=== PATIENT | male | born 1990 | race Hispanic/Latino ===

== ENCOUNTER → 2019-01-12 | Outpatient (CLI) | payer OTHER ==
--- NOTE | 2019-01-12 10:25 | Diagnostic Imaging Report ---
EXAM: TOES RIGHT MIN 2 VIEWS DATE: 01/12/2019 10:00 AM INDICATION: Right first digit pain COMPARISON: None FINDINGS: There is a obliquely oriented, mildly displaced fracture of the medial/proximal aspect of the proximal phalanx of the first digit with extension into the first MTP joint. No other acute fractures or dislocations are appreciated. No radiopaque foreign body is appreciated. IMPRESSION: Acute appearing right first proximal phalanx fracture as detailed above. Signed by: Dr. Melecio Mccarthy MD on 01/12/2019 10:21 AM
== END ==
LOC: RAD 09:45
PROVIDERS: ATTEND Family Medicine
DX: S90.111A Contusion of right great toe without damage to nail, initial encounter (principal)